=== PATIENT | male | born 1975 | race Caucasian/White ===

== ENCOUNTER 2019-06-22 19:23 | Emergency (ER) | payer BC ==
[~2019-06-22] VITALS: Ht 167.6 cm; Wt 59.1 kg
[2019-06-22 19:31] VITALS: BP 147/76; TEMP 98
[2019-06-22] MEDS ORDERED: CHANTIX START M1 TAB PO (20:06)
[2019-06-22 21:30] VITALS: PULSE 68
== END 2019-06-22 21:34 | disposition home or self-care (01) ==
LOC: COL.ER 19:23
DX: S63.501A Unspecified sprain of right wrist, initial encounter (principal); F17.210 Nicotine dependence, cigarettes, uncomplicated; Z88.0 Allergy status to penicillin; X50.1XXA Overexertion from prolonged static or awkward postures, initial encounter; Y92.59 Other trade areas as the place of occurrence of the external cause